=== PATIENT | male | born 1990 | race Caucasian/White ===

== ENCOUNTER 2017-03-16 22:55 | Emergency (ER) | payer OTHER ==
[2017-03-16 23:04] VITALS: BP 142/90
[2017-03-16] MEDS ORDERED: NAPROXEN 250 MG TABLET PO ONE (23:06)
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
== END 2017-03-16 23:25 | disposition home or self-care (01) ==
LOC: ER 22:55
DX: S16.1XXA Strain of muscle, fascia and tendon at neck level, initial encounter (principal); S09.90XA Unspecified injury of head, initial encounter; M54.2 Cervicalgia; V87.7XXA Person injured in collision between other specified motor vehicles (traffic), initial encounter
CPT/HCPCS: 99284